=== PATIENT | male | born 1940 | race Caucasian/White ===

== ENCOUNTER 2023-08-26 12:37 | Emergency (ER) | payer OTHER, SELFPAY ==
[2023-08-26 12:51] VITALS: BP 186/102
--- NOTE | 2023-08-26 14:36 | ED.GENMED ---
History of Present Illness
General
Chief Complaint: Musculo-Skeletal Complaint
Time Seen by Provider: 08/26/23 14:14
Travel History
Have you had any contact with someone who has COVID-19?: No
Do you have any symptoms of coronavirus? Fever > 100 degrees, chills, cough, shortness of breath, sore throat, loss of taste or smell, muscle aches, or headache?: No
History of Present Illness
History of Present Illness:
83-year-old male presents to the emergency department for evaluation of persistent right popliteal pain rating down the calf for the past several weeks. Over the past 7 days his right calf has been swollen. Denies any paresthesias. Denies any
known trauma. Does have mild pain when ambulating. No chest pain or shortness of breath
Past History
Past History
ED Past Medical History: HTN and Hypercholesterolemia
ED Past Surgical History: None
Social History
Tobacco: Non-smoker
Alcohol: None
Drug: None
Personal:
Living: with family
Employment: Retired
Review of Systems
Review of Systems
Allergies reviewed?: Yes
All Other Systems: ROS reviewed and negative except as documented in HPI and ROS
Phy Exam
Physical Exam
Physical Exam:
GEN: Well appearing, NAD, WDWN
HEENT: Oral mucosa moist, no scleral icterus
Cardiac: Regular rate
Lung: No respiratory distress, no tachypnea
MSK: Right knee effusion noted. Diffuse edema extending from the knee down to the foot, right dorsalis pedis pulse 2+
Skin: Good color, no pallor or jaundice, no rashes
Neuro: AO x3, moves all extremities freely
Psych: Calm, cooperative
Course
Orders/Labs/Results
Orders:
Orders
08/26/23 14:36
Venous Doppler Lwr Ext Rt [US Perip Venous LOWER Ext RT] Urgent
Comment:
Reason For Exam: R popliteal pain/calf swelling
08/26/23 16:54
CR Knee- Right 4 Or More View* Urgent
Comment:
Reason For Exam: knee effusion
Vital Signs
Initial and Last Documented VS:
Initial Vital Signs
Temp Pulse Resp BP Pulse Ox
98.1 F 91 20 186/102 99
08/26/23 12:51 08/26/23 12:51 08/26/23 12:51 08/26/23 12:51 08/26/23 12:51
Last Documented Vital Signs
Temp Pulse Resp BP Pulse Ox
98.1 F 91 20 186/102 99
08/26/23 12:51 08/26/23 12:51 08/26/23 12:51 08/26/23 12:51 08/26/23 12:51
MDM/Problems Addressed
MDM/Problems Addressed:
No evidence for DVT. X-ray shows degenerative changes independently interpreted by me. May represent a ruptured Greene's cyst. Recommend NSAIDs and outpatient orthopedic follow-up
*Critical Care Note
Total Time (30-74mins, 75-104mins- exclusive of procedures): Not Applicable
ED Attending Note
-
Portions of this chart may have been created with voice recognition software.� Occasional wrong word or��sound alike� substitutions may have occurred due to the inherent limitations of voice recognition software.
Discharge Plan
Departure
Patient Disposition: Home (Routine Discharge)
Date of Disposition: 08/26/23
Time of Disposition: 17:45
Patient with high blood pressure during this ER visit?: No
Discharge Problem:
Effusion of right knee
Instructions: Swollen Joints (DC)
Prescriptions:
New
diclofenac sodium 75 mg tablet,delayed release (DR/EC)
75 mg PO BID PRN (Reason: Pain) Qty: 20 0RF
No Action
atorvastatin 10 MG tablet
10 mg PO DAILY
lisinopril 10 MG tablet
10 mg PO DAILY
sennosides [senna] 8.6 MG tablet
8.6 mg PO HS
acetaminophen [Tylenol Arthritis] 650 MG tablet extended release
1,300 mg PO DAILYPRN PRN (Reason: mild pain)
ascorbic acid (vitamin C) [Vitamin C] 500 MG tablet
500 mg PO DAILY
[id number] [Centrum Silver Men] 1 EACH tablet
1 ea PO DAILY
acetaminophen 325 MG tablet
650 mg PO Q4HPRN PRN (Reason: mild pain/NAVARRO/temp> 100.4F) 0RF
Paxlovid 300 mg (150 mg x 2)-100 mg tablets,dose pack
See Rx Instructions .ROUTE .COMPLEX Qty: 30 0RF
Rx Instructions:
take TWO 150 mg tablets of nirmatrelvir with ONE 100 mg tablet of ritonavir twice daily for 5 days
albuterol sulfate [ProAir HFA] 90 mcg/actuation HFA aerosol inhaler
2 puff inhalation Q4HPRN PRN (Reason: shortness of breath) Qty: 8.5 0RF
Referrals:
David Joyce MD [Family Provider] -
Harjeet Schafer MD [Active] -
Interventions
Interventions:
*ED COVID-19 Vaccine History Last Done: 08/26/23 12:51
Discharge Date and Time
Print Language: BELARUSIAN
== END 2023-08-26 17:48 | disposition home or self-care (01) ==
LOC: EMR 12:37
PROVIDERS: EMERGENCY PHYSICIAN Emergency Medicine; FAMILY PHYSICIAN Internal Medicine
DX: M25.461 Effusion, right knee (principal)
CPT/HCPCS: 99284; 73564; 93971

== ENCOUNTER 2023-11-17 07:14 | Emergency (ER) | payer OTHER, SELFPAY ==
[2023-11-17 07:16] VITALS: BP 200/101
--- NOTE | 2023-11-17 07:40 | ED.GENMED ---
History of Present Illness
General
Chief Complaint: Musculo-Skeletal Complaint
Source: patient
Exam Limitations: none
Time Seen by Provider: 11/17/23 07:34
History of Present Illness
History of Present Illness:
See MDM
Past History
Past History
ED Past Medical History: HTN and Hypercholesterolemia
ED Past Surgical History: None
Social History
Tobacco: Non-smoker
Alcohol: None
Drug: None
Personal:
Living: with family
Employment: Retired
Phy Exam
Physical Exam
Physical Exam:
See MDM
Course
Orders/Labs/Results
Orders:
Orders
11/17/23 07:39
US Periph Venous LOWER Ext RT Urgent
Comment:
Reason For Exam: mid calf pain
Vital Signs
Initial and Last Documented VS:
Initial Vital Signs
Temp Pulse Resp BP Pulse Ox
97.8 F 75 18 200/101 99
11/17/23 07:16 11/17/23 07:16 11/17/23 07:16 11/17/23 07:16 11/17/23 07:16
Last Documented Vital Signs
Temp Pulse Resp BP Pulse Ox
97.8 F 75 18 200/101 99
11/17/23 07:16 11/17/23 07:16 11/17/23 07:16 11/17/23 07:16 11/17/23 07:16
MDM/Problems Addressed
Differential Diagnosis Includes:
HPI and MDM Narrative:
83-year-old male presenting with right calf pain. He felt a pull in his calf when he was walking yesterday. No significant injury noted. Patient states he felt okay throughout the day but pain worsened this morning. His at bedside wants to
make sure he does not have a blood clot. Patient does acknowledge that it is likely a pulled muscle. Mitzi is helping somewhat. He does not want stronger pain medicine. The extremity is neurovascularly intact. I will obtain ultrasound to rule
out blood clot but I did discuss with patient and that the injury could be to fracture to develop a significant clot and we discussed return precautions such as worsening pain, swelling or redness
Physical exam
General: Well appearing and non-toxic
HEENT: protecting airway
Neck: appears supple
CV: No evidence of cyanosis
Resp: No accessory muscle use
Abd: Non-distended
Extremities: No deformities. Mild tenderness to right mid calf. Pain made worse with foot dorsiflexion. No skin changes or edema. Extremity otherwise neurovascularly intact. No bony tenderness
Neuro: alert
Psych: Normal affect
Skin: Intact
Problems Addressed including Acute and Chronic Conditions affecting care:
1. Right calf strain
Acuity: acute
Prognosis: stable
Details: Discussed rest and NSAIDs. Will obtain ultrasound to rule out clot
Updates
Ultrasound negative for DVT. Patient was comfortable going home
Differential Diagnosis (but not limited to): Muscle strain, DVT
Testing considered: X-ray but no bony tenderness noted
Drug therapy (if applicable): OTC meds, please see d/c instruction regarding Rx drugs
Amount and/or Complexity of Data Reviewed
Clinical info obtained from: Patient
External data reviewed: N/A
Labs I independently reviewed (but not limited to): N/A
Radiology: Ultrasound report reviewed
Pulse Ox: not hypoxic
EKG independently reviewed: N/A
It Software Engineer: N/A
Critical Care: N/A
Risk of Complication:
Social Determinants of health: Good social support
Discussed with other providers: N/A
Escalation of Care includes Admit/Obs: After being observed in the Emergency Department, pt stable for discharge.
Occasional wrong word or 'sound a like' substitutions may have occurred due to the inherent limitations of voice recognition software. Read the chart carefully and recognize, using context, where substitutions have occurred.
*Critical Care Note
Total Time (30-74mins, 75-104mins- exclusive of procedures): Not Applicable
ED Attending Note
-
Portions of this chart may have been created with voice recognition software.� Occasional wrong word or��sound alike� substitutions may have occurred due to the inherent limitations of voice recognition software.
Discharge Plan
Departure
Patient Disposition: Home (Routine Discharge)
Date of Disposition: 11/17/23
Time of Disposition: 09:03
Patient with high blood pressure during this ER visit?: Yes
Discharge Problem:
Strain of right calf muscle
Instructions: Lower Extremity Muscle Strain
Prescriptions:
No Action
atorvastatin 10 MG tablet
10 mg PO DAILY
lisinopril 10 MG tablet
10 mg PO DAILY
sennosides [senna] 8.6 MG tablet
8.6 mg PO HS
acetaminophen [Tylenol Arthritis] 650 MG tablet extended release
1,300 mg PO DAILYPRN PRN (Reason: mild pain)
ascorbic acid (vitamin C) [Vitamin C] 500 MG tablet
500 mg PO DAILY
[id number] [Centrum Silver Men] 1 EACH tablet
1 ea PO DAILY
acetaminophen 325 MG tablet
650 mg PO Q4HPRN PRN (Reason: mild pain/NAVARRO/temp> 100.4F) 0RF
Paxlovid 300 mg (150 mg x 2)-100 mg tablets,dose pack
See Rx Instructions .ROUTE .COMPLEX Qty: 30 0RF
Rx Instructions:
take TWO 150 mg tablets of nirmatrelvir with ONE 100 mg tablet of ritonavir twice daily for 5 days
albuterol sulfate [ProAir HFA] 90 mcg/actuation HFA aerosol inhaler
2 puff inhalation Q4HPRN PRN (Reason: shortness of breath) Qty: 8.5 0RF
diclofenac sodium 75 mg tablet,delayed release (DR/EC)
75 mg PO BID PRN (Reason: Pain) Qty: 20 0RF
Activity Restrictions/Additional Instructions:
Please return for any worsening symptoms such as worsening pain, redness or swelling.
You may return at any time if you have further concerns.
Please follow up with your doctor at the first available appointment, preferably this week.
Thank you for choosing [facility].
Interventions
Interventions:
*Risk Screen - Suicide Last Done: 11/17/23 07:18
*General Assessment Last Done: 11/17/23 07:18
*Neglect/Abuse Screening Last Done: 11/17/23 07:18
ED- Fall Risk Assessment Last Done: 11/17/23 07:43
*ED COVID-19 Vaccine History Last Done: 11/17/23 07:43
ED-Musculoskeletal Assessment Last Done: 11/17/23 07:43
Discharge Date and Time
Print Language: CHINESE
[2023-11-17 07:42] VITALS: BMI 26.8
[2023-11-17 09:11] VITALS: BP 181/71
[2023-11-17 09:13] VITALS: BP 181/71
== END 2023-11-17 09:14 | disposition home or self-care (01) ==
LOC: EMR 07:14
PROVIDERS: EMERGENCY PHYSICIAN Student in an Organized Health Care Education/Training Program; FAMILY PHYSICIAN Internal Medicine
DX: S86.111A Strain of other muscle(s) and tendon(s) of posterior muscle group at lower leg level, right leg, initial encounter (principal); X50.0XXA Overexertion from strenuous movement or load, initial encounter; I10 Essential (primary) hypertension
CPT/HCPCS: 99284; 93971

== ENCOUNTER → 2023-12-27 07:15 | Outpatient (REF) | payer OTHER, SELFPAY | LOC: HWRAD 07:15 | PROVIDERS: ATTENDING PHYSICIAN Internal Medicine | DX: M79.9 Soft tissue disorder, unspecified (principal) | CPT/HCPCS: 76882 ==

== ENCOUNTER → 2024-06-02 06:46 | Outpatient (REF) | payer OTHER, SELFPAY | LOC: HWRAD 06:46 | PROVIDERS: ATTENDING PHYSICIAN Internal Medicine | DX: R79.89 Other specified abnormal findings of blood chemistry (principal) | CPT/HCPCS: 76700 ==

== ENCOUNTER → 2024-07-28 13:45 | Outpatient (REF) | payer OTHER, SELFPAY | LOC: MRI 13:45 | PROVIDERS: ATTENDING PHYSICIAN Orthopaedic Surgery; FAMILY PHYSICIAN Internal Medicine | DX: M17.11 Unilateral primary osteoarthritis, right knee (principal) | CPT/HCPCS: 73721 ==

== ENCOUNTER → 2025-02-22 07:14 | Outpatient (REF) | payer OTHER, SELFPAY | LOC: HWRCS 07:14 | PROVIDERS: ATTENDING PHYSICIAN Internal Medicine Cardiovascular Disease; FAMILY PHYSICIAN Internal Medicine | DX: R01.1 Cardiac murmur, unspecified (principal) | CPT/HCPCS: 93306 ==